=== PATIENT | female | born 1975 | race Caucasian/White ===

== ENCOUNTER → 2021-05-09 | Day surgery (SDC) | payer OTHER ==
[~2021-05-09] VITALS: Ht 162.6 cm; Wt 108.0 kg
[~2021-05-09] MED LIST: ABILIFY10 MG PO; ADDERALL 30 MG30 MG PO; ALDACTONE25 MG PO; ASPIRIN EC81 MG PO; ATORVASTATIN CA10 MG PO; BACLOFEN 20MG T20 MG PO; BRIN20TA PO; CARAFATE1 GM PO; CEFDINIR300 MG PO; CELLCEPT500 M1 PO; CLARITIN10 MG PO; DULERA 200 MCG8.8 GM INH; DUONEB 2.5-0.5M1 AMP INH; ELIQUIS5 MG PO; GLUCOPHAGE XR750 MG PO; HCTZ25 MG PO; HYDROCODON-ACE1 EAC2 PO; IMITREX25 MG PO; LACTINEX1 EACH PO; MUCINEX 600MG600 MG PO; NEURONTIN600 MG PO; NITROSTAT0.4 MG PO; OZEMPIC1 MG/0.71 IM; PRINIVIL20 MG PO; PROTONIX 40MG T40 MG PO; REMERON15 MG PO; SEROQUEL50 MG PO; SINGULAIR10 MG PO; TESSALON PERLE100 MG PO; TIZANIDINE HCL6 MG PO; TOPAMAX50 MG PO; TOPROL XL 50 MG50 MG PO; VICTOZA 2-0.6 MG/0.1 SC; XARELTO20 MG PO; ZOFRAN4 MG PO; ZOLOFT50 MG PO; [UNRECOGNIZED DRUG - OTHER]; [UNRECOGNIZED DRUG - OTHER] OU
[2021-05-09 08:40] LABS: HCT 39.5 % (37.0-47.0); HGB 12.8 g/dl (12.5-16.0); MCH 27.8 pg (25.0-31.0); MCHC 32.4 g/dL (32.0-36.0); MCV 85.7 fL (78.0-100.0); MPV 10.3 fL (6.0-9.5); RBC 4.61 M/uL (4.20-5.40); RDW 13.3 % (11.5-14.0); WBC 9.4 K/uL (4.0-10.5)
[2021-05-09 08:59] LABS: ALBUMIN 3.8 g/dL (3.4-5.0); BILIRUBIN - TOTAL 0.5 mg/dL (0.2-1.0); BUN/CREAT RATIO (CALC) 10.7 RATIO; CREATININE 0.75 mg/dL (0.51-0.95); GLOBULIN (CALCULATION) 4.1 g/dL; POTASSIUM 3.3 mmol/L (3.5-5.1); TOTAL PROTEIN 7.9 g/dL (6.4-8.2)
[2021-05-09 09:19] LABS: HCG (URINE) SCREEN NEGATIVE (NEGATIVE)
== END | disposition home or self-care (01) ==
LOC: FAS 08:00
PROVIDERS: Anesthesiology; Surgery
DX: K31.9 Disease of stomach and duodenum, unspecified (principal); K29.60 Other gastritis without bleeding; K57.31 Diverticulosis of large intestine without perforation or abscess with bleeding; K58.1 Irritable bowel syndrome with constipation; E78.5 Hyperlipidemia, unspecified; I10 Essential (primary) hypertension; K21.9 Gastro-esophageal reflux disease without esophagitis; E11.9 Type 2 diabetes mellitus without complications; E66.9 Obesity, unspecified; Z68.41 Body mass index [BMI] 40.0-44.9, adult; Z88.1 Allergy status to other antibiotic agents; Z79.84 Long term (current) use of oral hypoglycemic drugs; Z79.82 Long term (current) use of aspirin; Z79.01 Long term (current) use of anticoagulants; Z90.49 Acquired absence of other specified parts of digestive tract
CPT/HCPCS: 36415; 80053; 84703; J1610; J2704; J3490; J7120